=== PATIENT | female | born 1950 ===

== ENCOUNTER → 2016-05-24 | Outpatient (CLI) | payer OTHER ==
[2016-05-24 13:27] LABS: BASO % 0.7 %; BASO ABS # 0.04 K/uL (0-0.2); COMPLETE YES; EOS % 3.6 %; HEMATOCRIT 43.2 % (37-47); IG% 0.2 %; LYMPH % 31.5 %; LYMPH ABS # 1.91 K/uL (1.2-3.4); MEAN CELL VOLUME 84.7 fL (80-100); MEAN CORPUSCULAR HEMOGLOBIN 28.2 pg (25-34); MEAN CORPUSCULAR HGB CONC 33.3 g/dl (32-36); MEAN PLATELET VOLUME 12.1 fL (7.4-10.4); MONO % 8.9 %; NEUT % 55.1 %; PLATELET COUNT 217 K/uL (130-400); WHITE BLOOD COUNT 6.06 K/uL (4.8-10.8)
[2016-05-24 13:39] LABS: ALT/SGPT 31 U/L (12-78); BLOOD UREA NITROGEN 15 mg/dl (7-18); BUN/CREATININE RATIO 21.5 (10-20); CALCIUM 9.4 mg/dl (8.5-10.1); CARBON DIOXIDE 30 mmol/L (21-32); CHLORIDE 103 mmol/L (98-107); CHOLESTEROL 241 mg/dl (0-200); CREATININE 0.71 mg/dl (0.60-1.20); GLUCOSE 103 mg/dl (70-99); POTASSIUM 4.1 mmol/L (3.5-5.1); SODIUM 140 mmol/L (136-145); TRIGLYCERIDES 236 mg/dl (0-150); VERY LOW DENSITY LIPOPROT CALC 47 mg/dl
[2016-05-24 13:43] LABS: ALB/GLOB RATIO 0.9 (0.9-2); ALKALINE PHOSPHATASE 78 U/L (45-117); AST/SGOT 24 U/L (15-37); CHOLESTEROL/HDL RATIO 3.5; HDL CHOLESTEROL 68 mg/dl; LDL CHOLESTEROL CALCULATED 126 mg/dl
== END | disposition home or self-care (01) ==
LOC: C.LABMFLN 08:05
PROVIDERS: ATTEND Family Medicine
DX: Z11.59 Encounter for screening for other viral diseases (principal); I10 Essential (primary) hypertension; E78.5 Hyperlipidemia, unspecified